=== PATIENT | female | born 1950 | race Caucasian/White ===

== ENCOUNTER 2019-09-02 06:46 | Outpatient (CLI) | payer MEDICARE, MEDICAID, SELFPAY ==
[2019-09-02 07:35] LABS: Basophils Absolute Auto 0.1 K/mm3 (0.0-0.1); Basophils Percent Auto 1.6 % (0.2-1.2); Eosinophils Absolute Auto 0.3 K/mm3 (0-0.3); Eosinophils Percent Auto 3.7 % (0-4.4); Hemoglobin 14.3 g/dL (12.0-15.0); Immature Granulocyte Absolute 0.09 K/mm3 (0.00-0.031); Immature Granulocyte Percent A 1.1 % (0-0.5); Lymphocytes Absolute Auto 2.47 K/mm3 (0.9-3.2); Lymphocytes Percent Auto 30.7 % (18.3-44.2); Mean Corpuscular HGB Conc 31.8 g/dl (32-36); Mean Corpuscular Volume 91.3 fl (80-100); Mean Platelet Volume 10.6 fl (7.4-10.4); Monocytes Absolute Auto 0.9 K/mm3 (0.1-0.6); Monocytes Percent Auto 10.7 % (2.6-8.5); Neutrophils Absolute Auto 4.2 K/mm3 (1.3-6.7); Neutrophils Percent Auto 52.2 % (45.5-73.1); Platelet Count Result 284 k/mm3 (150-375); Red Blood Count 4.93 M/mm3 (4.2-5.4); Red Cell Distribution Width 14.4 % (11.5-14.5); White Blood Count 8.1 K/mm3 (4.5-10.0)
[2019-09-02 07:51] LABS: Alanine Aminotransferase 18 U/L (4-35); Albumin Level 3.9 g/dL (3.5-5.1); Alkaline Phosphatase 65 U/L (38-126); Aspartate Amino Transferase 21 U/L (14-36); Bilirubin,Total 0.4 mg/dL (0.2-1.3); Blood Urea Nitrogen 18 mg/dL (7-17); Calcium 9.4 mg/dL (8.4-10.2); Carbon Dioxide 25 mmol/L (22-30); Chloride 104 mmol/L (98-107); Cholesterol 134 mg/dL (0-200); Estimated Glomerular Filt Rate > 60; Glucose 112 mg/dL (65-105); HDL Direct 39 mg/dL; Potassium 4.5 mmol/L (3.4-5.0); Sodium 136 mmol/L (137-145); Triglycerides 204 mg/dL (<150)
[2019-09-02 08:06] LABS: LDL Cholesterol Direct 66 mg/dL
[2019-09-02 08:08] LABS: Hemoglobin A1C 6.3 % (<5.7)
[2019-09-02 11:26] LABS: Creatinine Urine 66.5 mg/dL
[2019-09-02 11:32] LABS: MALB Creatinine Ratio 29.6 mg/g (0-30); Microalbumin Urine Random 19.7 mg/L (0-16.7)
== END 2019-09-02 06:47 | disposition home or self-care (01) ==
PROVIDERS: PCP Internal Medicine; Visit Provider Internal Medicine
DX: E11.9 Type 2 diabetes mellitus without complications (principal); E78.5 Hyperlipidemia, unspecified; I10 Essential (primary) hypertension
CPT/HCPCS: 36415; 80053; 80061; 82043; 83036; 84443; 85025

== ENCOUNTER 2020-02-17 09:38 | Outpatient (CLI) | payer MEDICARE, MEDICAID, SELFPAY ==
[2020-02-17 10:32] LABS: Basophils Absolute Auto 0.1 K/mm3 (0.0-0.1); Basophils Percent Auto 1.5 % (0.2-1.2); Eosinophils Absolute Auto 0.2 K/mm3 (0-0.3); Eosinophils Percent Auto 2.6 % (0-4.4); Hematocrit 46.1 % (37.0-47.0); Hemoglobin 15.3 g/dL (12.0-15.0); Immature Granulocyte Absolute 0.05 K/mm3 (0.00-0.031); Immature Granulocyte Percent A 0.6 % (0-0.5); Lymphocytes Absolute Auto 2.03 K/mm3 (0.9-3.2); Lymphocytes Percent Auto 25.4 % (18.3-44.2); Mean Corpuscular HGB Conc 33.2 g/dl (32-36); Mean Corpuscular Hemoglobin 29.9 pg (26-34); Mean Corpuscular Volume 90.2 fl (80-100); Mean Platelet Volume 10.2 fl (7.4-10.4); Monocytes Absolute Auto 0.8 K/mm3 (0.1-0.6); Monocytes Percent Auto 10.2 % (2.6-8.5); Neutrophils Absolute Auto 4.8 K/mm3 (1.3-6.7); Neutrophils Percent Auto 59.7 % (45.5-73.1); Platelet Count Result 337 k/mm3 (150-375); Red Blood Count 5.11 M/mm3 (4.2-5.4)
[2020-02-17 10:45] LABS: Alanine Aminotransferase 25 U/L (4-35); Albumin Level 3.9 g/dL (3.5-5.1); Alkaline Phosphatase 72 U/L (38-126); Anion Gap 5 mmol/L (8-16); Aspartate Amino Transferase 26 U/L (14-36); Bilirubin,Total 0.6 mg/dL (0.2-1.3); Blood Urea Nitrogen 25 mg/dL (7-17); Calcium 9.7 mg/dL (8.4-10.2); Carbon Dioxide 30 mmol/L (22-30); Chloride 103 mmol/L (98-107); Cholesterol 168 mg/dL (0-200); Estimated Glomerular Filt Rate > 60; Glucose 140 mg/dL (65-105); HDL Direct 39 mg/dL; Potassium 4.2 mmol/L (3.4-5.0); Sodium 138 mmol/L (137-145); Triglycerides 182 mg/dL (<150)
[2020-02-17 10:56] LABS: LDL Cholesterol Direct 95 mg/dL
[2020-02-17 11:04] LABS: Creatinine Urine 123.9 mg/dL
[2020-02-17 11:09] LABS: MALB Creatinine Ratio 8.4 mg/g (0-30); Microalbumin Urine Random 10.4 mg/L (0-16.7)
[2020-02-17 11:20] LABS: Hemoglobin A1C 5.8 % (<5.7)
== END 2020-02-17 09:39 | disposition home or self-care (01) ==
PROVIDERS: PCP Internal Medicine; Visit Provider Internal Medicine
DX: E78.5 Hyperlipidemia, unspecified (principal); E11.9 Type 2 diabetes mellitus without complications; I10 Essential (primary) hypertension
CPT/HCPCS: 36415; 80053; 80061; 82043; 83036; 85025

== ENCOUNTER 2020-03-09 15:23 | Outpatient (CLI) | payer MEDICARE, MEDICAID, SELFPAY ==
--- NOTE | ~2020-03-09 | CT_ITS ---
EXAMINATION: CT lung screening DATE: 03/09/2020 16:40 INDICATION: History of tobacco dependence TECHNIQUE: Computed tomography (CT) of the chest was performed without intravenous contrast. The dose -length product was 255.87 mGy-cm. Automated exposure control and iterative reconstruction technique were employed. COMPARISON: CT dated 07/23/2018 FINDINGS: There is atherosclerosis. There is coronary artery calcifications. No significant pleural o r pericardial effusion. No evidence for aortic aneurysm. No thoracic lymphadenopathy. Stable 3 mm rig ht middle lobe nodule, image 61. There is a 3 mm right upper lobe nodule, image 34. There is a 3 mm r ight upper lobe nodule, image 27. There is a subsolid 3 mm nodule, image 26. There is a 2 mm left upp er lobe nodule, image 40. No endobronchial lesions. Mild thoracic spondylosis. No osteolytic or osteo blastic lesions. IMPRESSION: 1. Lung-RADS category 2: Benign appearance or behavior. Continue annual screening with noncontrast lo w-dose chest CT in 12 months. Reviewed, dictated and finalized at location A. [employer] IMPRESSION: 1. Lung-RADS category 2: Benign appearance or behavior. Continue annual screeni ng with noncontrast low-dose chest CT in 12 months.
== END 2020-03-09 15:24 | disposition home or self-care (01) ==
PROVIDERS: PCP Internal Medicine; Visit Provider Internal Medicine
DX: Z12.2 Encounter for screening for malignant neoplasm of respiratory organs (principal); Z87.891 Personal history of nicotine dependence
CPT/HCPCS: G0297

== ENCOUNTER 2020-04-02 07:07 | Outpatient (CLI) | payer MEDICARE, MEDICAID, SELFPAY ==
--- NOTE | ~2020-04-02 | MM_ITS ---
EXAMINATION: MM screening tj BI w romina HISTORY: Screening TECHNIQUE: Craniocaudal and mediolateral oblique 3-D tomosynthesis images were obtained and synthetic 2-D images were generated. CAD analysis was submitted and interpreted. COMPARISON: Comparison to multiple prior studies sequentially, with oldest reviewed study dated 05/27. BREAST PARENCHYMAL COMPOSITION: The breasts are almost entirely fatty. FINDINGS: There is no evidence of suspicious mass, calcification, or architectural distortion to sugg est malignancy in either breast. There has been no suspicious interval change. IMPRESSION: 1. No mammographic evidence of malignancy. 2. Recommend routine screening mammography in one year. BI-RADS Category 1: Negative Reviewed, dictated and finalized at location A. [employer]
== END 2020-04-02 07:08 | disposition home or self-care (01) ==
LOC: ANHIMG 07:20
PROVIDERS: PCP Internal Medicine; Visit Provider Internal Medicine
DX: Z12.31 Encounter for screening mammogram for malignant neoplasm of breast (principal)
CPT/HCPCS: 77063; 77067

== ENCOUNTER 2020-08-24 07:08 | Outpatient (CLI) | payer MEDICARE, MEDICAID, SELFPAY ==
[2020-08-24 07:50] LABS: Basophils Absolute Auto 0.1 K/mm3 (0.0-0.1); Basophils Percent Auto 1.3 % (0.2-1.2); Eosinophils Absolute Auto 0.2 K/mm3 (0-0.3); Eosinophils Percent Auto 2.9 % (0-4.4); Hematocrit 46.1 % (37.0-47.0); Hemoglobin 14.8 g/dL (12.0-15.0); Immature Granulocyte Absolute 0.04 K/mm3 (0.00-0.031); Immature Granulocyte Percent A 0.5 % (0-0.5); Lymphocytes Absolute Auto 2.76 K/mm3 (0.9-3.2); Lymphocytes Percent Auto 33.6 % (18.3-44.2); Mean Corpuscular HGB Conc 32.1 g/dl (32-36); Mean Corpuscular Hemoglobin 29.4 pg (26-34); Mean Corpuscular Volume 91.5 fl (80-100); Mean Platelet Volume 11.1 fl (7.4-10.4); Monocytes Absolute Auto 0.8 K/mm3 (0.1-0.6); Monocytes Percent Auto 10.1 % (2.6-8.5); Neutrophils Absolute Auto 4.2 K/mm3 (1.3-6.7); Neutrophils Percent Auto 51.6 % (45.5-73.1); Platelet Count Result 286 k/mm3 (150-375); Red Blood Count 5.04 M/mm3 (4.2-5.4); Red Cell Distribution Width 14.6 % (11.5-14.5); White Blood Count 8.2 K/mm3 (4.5-10.0)
[2020-08-24 08:07] LABS: Hemoglobin A1C 5.9 % (<5.7)
[2020-08-24 08:09] LABS: Alanine Aminotransferase 25 U/L (4-35); Albumin Level 3.7 g/dL (3.5-5.1); Alkaline Phosphatase 62 U/L (38-126); Anion Gap 7 mmol/L (8-16); Aspartate Amino Transferase 29 U/L (14-36); Bilirubin,Total 0.4 mg/dL (0.2-1.3); Blood Urea Nitrogen 24 mg/dL (7-17); Calcium 9.1 mg/dL (8.4-10.2); Carbon Dioxide 26 mmol/L (22-30); Chloride 104 mmol/L (98-107); Cholesterol 120 mg/dL (0-200); Estimated Glomerular Filt Rate 55; Glucose 104 mg/dL (65-105); HDL Direct 35 mg/dL; Potassium 4.9 mmol/L (3.4-5.0); Sodium 137 mmol/L (137-145); Triglycerides 195 mg/dL (<150)
[2020-08-24 08:20] LABS: LDL Cholesterol Direct 54 mg/dL
[2020-08-24 09:54] LABS: Vitamin D 25 Hydroxy 65.3 ng/mL
[2020-08-24 13:20] LABS: Creatinine Urine 189.6 mg/dL
[2020-08-24 13:32] LABS: MALB Creatinine Ratio < 3.2 mg/g (0-30); Microalbumin Urine Random < 6.0 mg/L (0-16.7)
== END 2020-08-24 07:09 | disposition home or self-care (01) ==
LOC: ANHLAB 07:12
PROVIDERS: PCP Internal Medicine; Visit Provider Internal Medicine
DX: Z78.0 Asymptomatic menopausal state (principal); I25.10 Atherosclerotic heart disease of native coronary artery without angina pectoris; J44.9 Chronic obstructive pulmonary disease, unspecified; E11.9 Type 2 diabetes mellitus without complications; I10 Essential (primary) hypertension; E55.9 Vitamin D deficiency, unspecified; E78.2 Mixed hyperlipidemia
CPT/HCPCS: 36415; 80053; 80061; 82043; 82306; 83036; 84443; 85025

== ENCOUNTER 2021-02-26 07:01 | Outpatient (CLI) | payer MEDICARE, SELFPAY ==
[2021-02-26 08:43] LABS: Alanine Aminotransferase 20 U/L (4-35); Albumin Level 4.2 g/dL (3.5-5.1); Alkaline Phosphatase 62 U/L (38-126); Anion Gap 8 mmol/L (8-16); Aspartate Amino Transferase 29 U/L (14-36); Bilirubin,Total 0.7 mg/dL (0.2-1.3); Blood Urea Nitrogen 25 mg/dL (7-17); Calcium 9.3 mg/dL (8.4-10.2); Carbon Dioxide 24 mmol/L (22-30); Chloride 100 mmol/L (98-107); Cholesterol 112 mg/dL (0-200); Estimated Glomerular Filt Rate > 60; Glucose 107 mg/dL (65-110); HDL Direct 34 mg/dL; Potassium 4.5 mmol/L (3.4-5.0); Sodium 132 mmol/L (137-145); Triglycerides 180 mg/dL (<150)
[2021-02-26 08:54] LABS: LDL Cholesterol Direct 48 mg/dL
[2021-02-26 09:10] LABS: Creatinine Urine 142.7 mg/dL
[2021-02-26 09:14] LABS: MALB Creatinine Ratio 4.7 mg/g (0-30); Microalbumin Urine Random 6.7 mg/L (0-16.7)
[2021-03-02 11:39] LABS: Vitamin D 1,25 (OH)2 Total 15 pg/mL (18-72); Vitamin D2 1,25 (OH)2 <8 pg/mL; Vitamin D3 1,25 (OH)2 15 pg/mL
== END 2021-02-26 07:02 | disposition home or self-care (01) ==
LOC: ANHLAB 07:07
PROVIDERS: PCP Internal Medicine; Visit Provider Internal Medicine
DX: E78.5 Hyperlipidemia, unspecified (principal); E11.9 Type 2 diabetes mellitus without complications; E55.9 Vitamin D deficiency, unspecified; I10 Essential (primary) hypertension; E87.1 Hypo-osmolality and hyponatremia
CPT/HCPCS: 36415; 80053; 80061; 82043; 82652; 84443

== ENCOUNTER 2021-02-27 07:30 | Outpatient (CLI) | payer OTHER, SELFPAY ==
[2021-02-27 09:40] LABS: Hemoglobin A1C 5.8 % (<5.7)
== END 2021-02-27 07:31 | disposition home or self-care (01) ==
LOC: ANHLAB 07:35
PROVIDERS: PCP Internal Medicine; Visit Provider Internal Medicine
DX: E78.5 Hyperlipidemia, unspecified (principal); I10 Essential (primary) hypertension; E11.9 Type 2 diabetes mellitus without complications
CPT/HCPCS: 36415; 83036

== ENCOUNTER 2021-03-15 10:43 | Outpatient (CLI) | payer OTHER, SELFPAY ==
--- NOTE | ~2021-03-15 | CT_ITS ---
EXAMINATION:CT lung screening DATE: 03/15/2021 10:59 INDICATION: Personal history of nicotine dependence. Current smoker with 50 pack year history. TECHNIQUE: Computed tomography (CT) of the chest was performed without intravenous contrast. Automate d exposure control and iterative reconstruction technique were employed. The dose-length product (DLP ) was 244.16 mGy-cm. COMPARISON: Chest CT 03/09/2020 FINDINGS: Again seen is a 4 mm nodule in right middle lobe. There are a few scattered 2-3 mm nodules. No pleural effusion. The heart size is normal. There are coronary artery calcifications. There are c alcifications of aortic valve. No pericardial effusion. There is mild thoracic spondylosis. IMPRESSION: 1. Lung-RADS category 2: Benign appearance or behavior. Continue annual screening with noncontrast lo w-dose chest CT in 12 months. Reviewed, dictated and finalized at location A. [employer] IMPRESSION: 1. Lung-RADS category 2: Benign appearance or behavior. Continue annual screeni ng with noncontrast low-dose chest CT in 12 months.
== END 2021-03-15 10:44 | disposition home or self-care (01) ==
LOC: ANHIMG 10:45
PROVIDERS: PCP Internal Medicine; Visit Provider Internal Medicine
DX: Z12.2 Encounter for screening for malignant neoplasm of respiratory organs (principal); Z87.891 Personal history of nicotine dependence
CPT/HCPCS: 71271

== ENCOUNTER 2021-09-22 14:43 | Outpatient (CLI) | payer OTHER, SELFPAY ==
[2021-09-22 15:07] LABS: Basophils Absolute Auto 0.1 K/mm3 (0.0-0.1); Basophils Percent Auto 1.2 % (0.2-1.2); Eosinophils Absolute Auto 0.1 K/mm3 (0-0.3); Eosinophils Percent Auto 0.8 % (0-4.4); Hematocrit 44.2 % (37.0-47.0); Hemoglobin 14.5 g/dL (12.0-15.0); Immature Granulocyte Absolute 0.04 K/mm3 (0.00-0.031); Immature Granulocyte Percent A 0.4 % (0-0.5); Mean Corpuscular HGB Conc 32.8 g/dl (32-36); Mean Corpuscular Hemoglobin 29.8 pg (26-34); Mean Corpuscular Volume 90.9 fl (80-100); Mean Platelet Volume 10.4 fl (7.4-10.4); Monocytes Absolute Auto 0.7 K/mm3 (0.1-0.6); Monocytes Percent Auto 7.6 % (2.6-8.5); Neutrophils Absolute Auto 6.6 K/mm3 (1.3-6.7); Platelet Count Result 323 k/mm3 (150-375); Red Blood Count 4.86 M/mm3 (4.2-5.4); Red Cell Distribution Width 14.3 % (11.5-14.5); White Blood Count 9.5 K/mm3 (4.5-10.0)
[2021-09-22 15:17] LABS: Alanine Aminotransferase 27 U/L (6-35); Albumin Level 4.3 g/dL (3.5-5.1); Alkaline Phosphatase 64 U/L (38-126); Anion Gap 6 mmol/L (8-16); Aspartate Amino Transferase 35 U/L (14-36); Bilirubin,Total 0.8 mg/dL (0.2-1.3); Blood Urea Nitrogen 29 mg/dL (7-17); Calcium 9.6 mg/dL (8.4-10.2); Carbon Dioxide 28 mmol/L (22-30); Chloride 102 mmol/L (98-107); Cholesterol 121 mg/dL (0-200); Creatine Kinase 76 U/L (30-135); Estimated Glomerular Filt Rate 49; Glucose 129 mg/dL (65-110); HDL Direct 32 mg/dL; Potassium 4.8 mmol/L (3.4-5.0); Sodium 136 mmol/L (137-145); Triglycerides 161 mg/dL (<150)
[2021-09-22 15:29] LABS: LDL Cholesterol Direct 50 mg/dL
[2021-09-22 16:40] LABS: Creatinine Urine 164.5 mg/dL
[2021-09-22 16:45] LABS: Microalbumin Urine Random 29.6 mg/L (0-16.7)
[2021-09-22 16:46] LABS: Thyroid Stimulating Hormone Reflex 0.984 uIU/mL (0.465-4.68)
[2021-09-22 17:02] LABS: Hepatitis C Virus Antibody Negative (Negative)
== END 2021-09-22 14:44 | disposition home or self-care (01) ==
PROVIDERS: PCP Student in an Organized Health Care Education/Training Program; Visit Provider Student in an Organized Health Care Education/Training Program
DX: Z00.00 Encounter for general adult medical examination without abnormal findings (principal); E11.9 Type 2 diabetes mellitus without complications; I25.10 Atherosclerotic heart disease of native coronary artery without angina pectoris; I10 Essential (primary) hypertension; E78.2 Mixed hyperlipidemia
CPT/HCPCS: 36415; 80053; 80061; 82043; 82550; 84443; 85025; 86803

== ENCOUNTER 2021-11-05 08:23 | Outpatient (CLI) | payer OTHER, SELFPAY ==
--- NOTE | ~2021-11-05 | MM_ITS ---
EXAMINATION: MM screening tj BI w romina HISTORY: Screening mammogram TECHNIQUE: Craniocaudal and mediolateral oblique 3-D tomosynthesis images were obtained and synthetic 2-D images were generated. CAD analysis was submitted and interpreted. COMPARISON: 04/02/2020, 05/21/2015 bilateral screening mammogram examinations BREAST PARENCHYMAL COMPOSITION: The breasts are almost entirely fatty. FINDINGS: There is no evidence of suspicious mass, calcification, or architectural distortion to sugg est malignancy in either breast. There has been no suspicious interval change. IMPRESSION: 1. No mammographic evidence of malignancy. 2. Recommend routine screening mammography in one year. BI-RADS Category 1: Negative Reviewed, dictated and finalized at location A.
== END 2021-11-05 08:24 | disposition home or self-care (01) ==
LOC: ANHIMG 08:24
PROVIDERS: PCP Student in an Organized Health Care Education/Training Program; Visit Provider Student in an Organized Health Care Education/Training Program
DX: Z12.31 Encounter for screening mammogram for malignant neoplasm of breast (principal)
CPT/HCPCS: 77063; 77067

== ENCOUNTER 2022-04-09 10:35 | Emergency (ER) | payer MEDICARE, SELFPAY ==
[2022-04-09] VITALS (32 sets, daily range): BP systolic 100–173; BP diastolic 60–98; PULSE 59–85; RESP 12–25; TEMP 36.4; O2SAT 95–100
--- NOTE | ~2022-04-09 | XR_ITS ---
EXAMINATION: XR chest 2V DATE: 04/09/2022 13:53 INDICATION: Shortness of breath. Nausea. TECHNIQUE: Frontal and lateral views of the chest were obtained. COMPARISON: Chest single view 04/13/2019, chest CT 03/15/2021 FINDINGS: There are airspace opacities overlying the lower lobes on the lateral view. No pleural effu ingrid or pneumothorax. The heart size is normal. There is a prominent right paracardial fat pad. IMPRESSION: 1. Airspace opacities overlying the lower lobes on the lateral view, consistent with atelectasis vers us pneumonia, which may be on either side or both sides. Reviewed, dictated and finalized at location A. [employer] IMPRESSION: 1. Airspace opacities overlying the lower lobes on the lateral view, consistent with atelectasis versus pneumonia, which may be on either side or both sides.
--- NOTE | 2022-04-09 11:54 | PC.NURSE ---
Patient stated that she has no chest pain now, but stated that she does have some chest pain from time to time.
[2022-04-09 12:10] LABS: Basophils Percent Auto 0.4 % (0.2-1.2); Eosinophils Percent Auto 0.1 % (0-4.4); Hematocrit 48.1 % (37.0-47.0); Immature Granulocyte Absolute 0.07 K/mm3 (0.00-0.031); Immature Granulocyte Percent A 0.6 % (0-0.5); Lymphocytes Absolute Auto 2.94 K/mm3 (0.9-3.2); Lymphocytes Percent Auto 25.8 % (18.3-44.2); Mean Corpuscular HGB Conc 35.3 g/dl (32-36); Mean Corpuscular Hemoglobin 30.8 pg (26-34); Mean Corpuscular Volume 87.1 fl (80-100); Mean Platelet Volume 10.9 fl (7.4-10.4); Monocytes Absolute Auto 1.3 K/mm3 (0.1-0.6); Monocytes Percent Auto 11.2 % (2.6-8.5); Neutrophils Absolute Auto 7.1 K/mm3 (1.3-6.7); Neutrophils Percent Auto 61.9 % (45.5-73.1); Platelet Count Result 328 k/mm3 (150-375); Red Blood Count 5.52 M/mm3 (4.2-5.4); Red Cell Distribution Width 13.4 % (11.5-14.5); White Blood Count 11.4 K/mm3 (4.5-10.0)
[2022-04-09] MEDS: IPRATROPIUM BR 0.02% INH SOLN 0.5 MG/2.5 ML VIAL INHALATION (12:14)
[2022-04-09] MEDS: ALBUTEROL SULFATE NEB 2.5 MG/3 ML INH 5 MG INHALATION (12:14)
[2022-04-09] MEDS: ONDANSETRON INJ 4 MG/2 ML VIAL IV PUSH (12:19)
[2022-04-09 12:24] LABS: Appearance Urine Clear (Clear); Bilirubin Urine 1+ (Negative); Blood Urine 1+ (Negative); Color Urine Yellow (Yellow); Glucose Urine UA Negative (Negative); Ketones Urine 1+ mg/dL (Negative); Leukocyte Esterase Ur Negative LEU/UL (Negative); Nitrate Urine Negative (Negative); Protein Urine Negative (Negative); Specific Grav Ur 1.025 (1.001-1.035); Urobilinogen Urine 0.2 mg/dL (<2.0); pH Urine 5.5 (5.0-9.0)
[2022-04-09 12:27] LABS: Alanine Aminotransferase 35 U/L (6-35); Albumin Level 4.4 g/dL (3.5-5.1); Alkaline Phosphatase 79 U/L (38-126); Anion Gap 9 mmol/L (8-16); Aspartate Amino Transferase 44 U/L (14-36); Bilirubin,Total 1.8 mg/dL (0.2-1.3); Blood Urea Nitrogen 32 mg/dL (7-17); Calcium 9.2 mg/dL (8.4-10.2); Carbon Dioxide 28 mmol/L (22-30); Chloride 91 mmol/L (98-107); Estimated Glomerular Filt Rate > 60; Glucose 127 mg/dL (65-110); Lipase 198 U/L (23-300); Potassium 3.8 mmol/L (3.4-5.0); Sodium 128 mmol/L (137-145)
[2022-04-09 12:33] LABS: Mucus Urine Rare /lpf; Squamous Epithelial Cell Urine Many /hpf (Few); WBC Urine 0-3 /hpf
[2022-04-09 12:36] LABS: Add Urine Microscopic? YES
[2022-04-09 12:36] LABS: Alveolar/Arterial O2 Gradient 53.3 mmHg; Base Excess ABG 5.3 mEq/l (+/-2.0); Carboxyhemoglobin 2.6 % THb (0-2.0); Fractional Inspired Oxygen 52 %; HCO3 ABG 26.7 mEq/l (22.0-26.0); Methemoglobin ABG 0.6 %THb (0-1.5); Oxygen Content ABG 24.4 %vol (16.0-22.0); Oxygen Saturation ABG 99.7 % (95.0-100.0); Oxyhemoglobin 96.2 % THb (90.0-100.0); PCO2 ABG 30.8 mmHg (35.0-45.0); PO2 FiO2 Ratio Arterial Blood 5.44 %; Reduced Hemoglobin 0.6 %THb (0-5.0); Total Hemoglobin 17.6 g/dL (12.0-18.0)
[2022-04-09 12:37] LABS: Device OTHER DEVICE; Site Drawn RIGHT BRACHIAL; pH ABG 7.556 (7.350-7.450)
[2022-04-09 12:47] LABS: Influenza A QL RT-PCR Negative (Negative); Influenza B QL RT-PCR Negative (Negative); SARS-CoV-2 RNA PCR Negative
--- NOTE | 2022-04-09 14:33 | ED.WEAKNESS ---
HPI - Weakness General Chief complaint: Weakness Stated complaint: weakness Time Seen by Provider: 04/09/22 11:45 History of Present Illness HPI Narrative: Patient is a 71-year-old female who presents ER with weakness. Onset 3 days ago. Not eating and drinking. No fevers or chills or sweats. Has persistent nausea. No diarrhea. No pain with eating. Denies sick contacts. Patient has some mild shortness of breath. Has history of COPD. No productive cough. Related Data Home Medications Medication Instructions Recorded Confirmed aspirin 81 mg tablet,delayed 81 mg PO DAILY 04/09/19 03/02/21 release (Adult Low Dose Aspirin) nitroglycerin 0.4 mg sublingual 0.4 mg sublingual PER PKG DIR PRN 04/09/19 03/02/21 tablet Angina Allergies Allergy/AdvReac Type Severity Reaction Status Date / Time acetaminophen Allergy Unknown NAUSEA, Verified 03/02/21 10:23 VOMITING Sulfa (Sulfonamide Allergy Unknown Unknown Verified 03/02/21 10:23 Antibiotics) Review of Systems Review of Systems: All systems reviewed & are unremarkable except as noted in HPI and below Constitutional: Constitutional: Denies chills, Reports fatigue, Denies fever(s) and Reports weakness ENT: Denies nasal congestion and Denies sore throat Cardiovascular: Cardiovascular: Denies chest pain and Denies rapid heart rate Respiratory: Respiratory: Denies cough, Reports dyspnea and Reports wheezing Gastrointestinal: Gastrointestinal: Denies abdominal pain, Denies nausea and Denies vomiting PMF Past Medical History Medical History (Updated 04/09/22 @ 18:24 by Jason Santiago MD) Bone spur Chronic back pain COPD (chronic obstructive pulmonary disease) Diabetes HTN (hypertension) Hyperlipidemia Post-menopausal Surgical History Surgical History History of tubal ligation Family History Family History Sibling Family history of heart disease in male family member before age 55 Mother Pancreatic cancer Diabetes mellitus Sibling Heart disease Diabetes mellitus Cerebrovascular accident Daughter MVA (motor vehicle accident) Father Cerebrovascular accident Other Hypertension Social History Social History Social History: The patient lives with her brother who she is a caregiver for. She had 2 children and her daughter in a motor vehicle accident. Her son recently was in a motor vehicle accident and is suffering some injuries from that. She still continues to smoke for several years. No alcohol use. 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 She does not want any CPR but will allow was put on the ventilator in the event that she cannot breathe. Smoking packs per day: 0.5 Smoking cigarettes per day: 10.0 Years smoked: 50 Smoking pack-years: 25.00 Smoking status: Current every day smoker Tobacco type: cigarettes Second hand tobacco smoke exposure: Yes Alcohol intake: never Substance use: never Substance use type: does not use Living arrangements: with family Occupation/Education: retired Gender identity (if verbalized by the patient): Female Spiritual care concerns: No Agree to blood products: No Exam Narrative: GENERAL: Fatigue is-appearing, well-nourished, and in no acute distress. HEAD: Normocephalic, atraumatic. EYES: PERRLA and EOMI. ENT: Mucous membranes moist. CHEST: Faint end expiratory wheezing posteriorly and anteriorly.. No respiratory distress. HEART: Regular rate and rhythm. Normal peripheral pulses. ABDOMEN: Soft, nontender, nondistended. EXTREMITIES: Normal range of motion. No edema. SKIN: Warm, dry, no rash. NEURO: Alert and oriented x3. PSYCH: Normal mood and affect. Course Course Emergency Course: Patient resting comfortably
[2022-04-09 14:51] LABS: Alveolar/Arterial O2 Gradient 25.7 mmHg; Base Excess ABG 5.1 mEq/l (+/-2.0); Carboxyhemoglobin 1.9 % THb (0-2.0); Fractional Inspired Oxygen 21 %; Methemoglobin ABG 0.5 %THb (0-1.5); Oxygen Content ABG 23.8 %vol (16.0-22.0); Oxygen Saturation ABG 98.2 % (95.0-100.0); Oxyhemoglobin 95.2 % THb (90.0-100.0); PO2 ABG 92.9 mmHg (80.0-100.0); PO2 FiO2 Ratio Arterial Blood 4.42 %; Reduced Hemoglobin 2.4 %THb (0-5.0); Total Hemoglobin 17.8 g/dL (12.0-18.0)
[2022-04-09 14:52] LABS: Device ROOM AIR; Modified Allen's Test Pass; Site Drawn LEFT RADIAL
[2022-04-09] MEDS: SODIUM CHLORIDE 0.9% IV 1,000 ML 999 ML IV CONT (15:12)
[2022-04-09 17:30] LABS: Anion Gap 9 mmol/L (8-16); Blood Urea Nitrogen 27 mg/dL (7-17); Calcium 8.5 mg/dL (8.4-10.2); Carbon Dioxide 27 mmol/L (22-30); Chloride 97 mmol/L (98-107); Estimated Glomerular Filt Rate > 60; Glucose 118 mg/dL (65-110); Potassium 3.5 mmol/L (3.4-5.0); Sodium 133 mmol/L (137-145)
[2022-04-09 18:06] LABS: Alveolar/Arterial O2 Gradient 38.2 mmHg; Base Excess ABG 1.1 mEq/l (+/-2.0); Carboxyhemoglobin 1.9 % THb (0-2.0); Fractional Inspired Oxygen 21 %; HCO3 ABG 23.6 mEq/l (22.0-26.0); Methemoglobin ABG 0.5 %THb (0-1.5); Oxygen Content ABG 20.6 %vol (16.0-22.0); Oxygen Saturation ABG 95.8 % (95.0-100.0); Oxyhemoglobin 92.3 % THb (90.0-100.0); PCO2 ABG 32.1 mmHg (35.0-45.0); PO2 ABG 73.1 mmHg (80.0-100.0); PO2 FiO2 Ratio Arterial Blood 3.48 %; Reduced Hemoglobin 5.3 %THb (0-5.0); Total Hemoglobin 15.9 g/dL (12.0-18.0); pH ABG 7.485 (7.350-7.450)
[2022-04-09 18:08] LABS: Modified Allen's Test Pass; Site Drawn RIGHT RADIAL
== END 2022-04-09 20:16 | disposition home or self-care (01) ==
PROVIDERS: Physician Assistant; Emergency Provider Emergency Medicine; PCP Student in an Organized Health Care Education/Training Program
DX: J18.9 Pneumonia, unspecified organism (principal); R11.0 Nausea; E87.3 Alkalosis; E86.0 Dehydration; E11.9 Type 2 diabetes mellitus without complications; I10 Essential (primary) hypertension; E78.5 Hyperlipidemia, unspecified; F17.210 Nicotine dependence, cigarettes, uncomplicated
CPT/HCPCS: 36415; 36600; 71046; 80048; 80053; 81001; 82375; 82805; 83050; 83690; 85025; 87636; 94640; 96361; 96374; 99284; J2405; J7030

== ENCOUNTER 2022-12-09 10:31 | Emergency (ER) | payer MEDICARE, MEDICAID, SELFPAY ==
--- NOTE | ~2022-12-09 | CT_ITS ---
EXAMINATION: CT cervical spine wo con DATE: 12/09/2022 12:23 INDICATION: Neck pain TECHNIQUE: Computed tomography (CT) of the cervical spine was performed without intravenous contrast. The dose-length product (DLP) was 328.29 mGy-cm. Automated exposure control and iterative reconstruc tion technique were employed. COMPARISON: None FINDINGS: There is 1 mm of anterolisthesis of C5 on C6. No fracture is identified. There is mild loss of intervertebral disc space height at C6-7. The odontoid process is intact. The prevertebral soft t issues are normal. There is multilevel mild facet and uncovertebral joint osteoarthritis. Severe face t joint osteoarthritis is noted on the right at C5-6. IMPRESSION: 1. Mild cervical spondylosis without acute findings. Reviewed, dictated and finalized at location B.
[2022-12-09 10:38] VITALS: BP 113/65; PULSE 79; RESP 14; TEMP 36.6; O2SAT 98
[2022-12-09 11:04] VITALS: BP 109/76; PULSE 71; RESP 26; TEMP 36.7; O2SAT 94
[2022-12-09 11:05] VITALS: O2SAT 95
--- NOTE | 2022-12-09 11:59 | ECG_ITS ---
Measurements Intervals [place] Rate: 62 P: 14 AR: 142 QRS: 6 QRSD: 82 T: 5 QT: 401 QTc: 407 Interpretive Statements SINUS RHYTHM LOW QRS VOLTAGE IN PRECORDIAL LEADS BASELINE WANDER- I, II, III, AVF, V5-V6 BORDERLINE ECG COMPARED TO ECG 04/09/2019 13:10:38 NO SIGNIFICANT CHANGES Electronically Signed On 12-09-2022 12:15:56 CDT by Yovany Jacinto D.O.
[2022-12-09] MEDS: CYCLOBENZAPRINE HCL 10 MG TABLET PO (12:13)
--- NOTE | 2022-12-09 12:15 | ED.GENADULT ---
HPI - General Adult General Chief complaint: Extremity Problem,Nontraumatic Stated complaint: left neck/shoulder/arm pain x 2 days Time Seen by Provider: 12/09/22 11:03 History of Present Illness HPI narrative: Dolores Wei is a 72 y/o female with PMHx of DM/ HTN/HLD/ COPD who presents with reports of having aching pain to her mid left arm that started 3 days ago, the following day the pain got worse and moved down to her whole arm. Today she decided to get it checked out. As of now she thinks the pain is actually better and thinks it might of been related to stress, although when she moves it she can kind of feel the pain return and go up to the left side of her neck Denies chest pain/ shortness of breath/ fever/chills/ trauma/falls/known injury,. Related Data Home Medications Medication Instructions Recorded Confirmed aspirin 81 mg tablet,delayed 81 mg PO DAILY 04/09/19 03/02/21 release (Adult Low Dose Aspirin) nitroglycerin 0.4 mg sublingual 0.4 mg sublingual PER PKG DIR PRN 04/09/19 03/02/21 tablet Angina Allergies Allergy/AdvReac Type Severity Reaction Status Date / Time acetaminophen Allergy Unknown NAUSEA, Verified 12/09/22 10:32 VOMITING Sulfa (Sulfonamide Allergy Unknown Unknown Verified 12/09/22 10:32 Antibiotics) Review of Systems Review of Systems: CONSTITUTIONAL: Denies fever, chills, or sweats. EYES: Denies visual changes, redness, or discharge. ENT: Denies rhinorrhea, congestion, sore throat, or otalgia. CARDIOVASCULAR: Denies chest pain, palpitations, or edema. RESPIRATORY: Denies cough or dyspnea. GASTROINTESTINAL: Denies abdominal pain, nausea, vomiting, or diarrhea. GENITOURINARY: Denies dysuria or hematuria. SKIN: Denies rash or itching. MUSCULOSKELETAL: Denies back pain, Complaints of pain to the mid left arm that moved down to her whole arm over the past couple days NEUROLOGIC: Denies headache, numbness, dizziness, or weakness. PSYCHIATRIC: Denies anxiety or depression. [facility] Past Medical History Medical History (Updated 12/09/22 @ 14:19 by Malika Robles APRN) Bone spur Chronic back pain COPD (chronic obstructive pulmonary disease) Diabetes HTN (hypertension) Hyperlipidemia Post-menopausal Surgical History Surgical History History of tubal ligation Family History Family History Sibling Family history of heart disease in male family member before age 55 Mother Pancreatic cancer Diabetes mellitus Sibling Heart disease Diabetes mellitus Cerebrovascular accident Daughter MVA (motor vehicle accident) Father Cerebrovascular accident Other Hypertension Social History Social History Social History: The patient lives with her brother who she is a caregiver for. She had 2 children and her daughter in a motor vehicle accident. Her son recently was in a motor vehicle accident and is suffering some injuries from that. She still continues to smoke for several years. No alcohol use. 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 She does not want any CPR but will allow was put on the ventilator in the event that she cannot breathe. Smoking packs per day: 0.5 Smoking cigarettes per day: 10.0 Years smoked: 50 Smoking pack-years: 25.00 Smoking status: Current every day smoker Tobacco type: cigarettes Second hand tobacco smoke exposure: Yes Alcohol intake: never Substance use: never Substance use type: does not use Living arrangements: with family Occupation/Education: retired Gender identity (if verbalized by the patient): Female Spiritual care concerns: No Agree to blood products: No Exam Narrative: GENERAL: Well-appearing, well-nourished, and in no acute distress. HEAD: Normocephalic, atraumatic. EYES:
--- NOTE | 2022-12-09 12:17 | PC.NURSE ---
pt off the floor to xray @ 1213
[2022-12-09 12:45] VITALS: BP 113/70
[2022-12-09 12:54] LABS: Basophils Absolute Auto 0.1 K/mm3 (0.0-0.1); Basophils Percent Auto 0.6 % (0.2-1.2); Eosinophils Absolute Auto 0.1 K/mm3 (0-0.3); Eosinophils Percent Auto 0.6 % (0-4.4); Hematocrit 43.2 % (37.0-47.0); Hemoglobin 14.4 g/dL (12.0-15.0); Immature Granulocyte Absolute 0.04 K/mm3 (0.00-0.031); Immature Granulocyte Percent A 0.4 % (0-0.5); Lymphocytes Absolute Auto 1.74 K/mm3 (0.9-3.2); Lymphocytes Percent Auto 16.1 % (18.3-44.2); Mean Corpuscular HGB Conc 33.3 g/dl (32-36); Mean Corpuscular Hemoglobin 29.9 pg (26-34); Mean Corpuscular Volume 89.8 fl (80-100); Mean Platelet Volume 10.5 fl (7.4-10.4); Monocytes Absolute Auto 1.3 K/mm3 (0.1-0.6); Neutrophils Absolute Auto 7.6 K/mm3 (1.3-6.7); Neutrophils Percent Auto 70.3 % (45.5-73.1); Platelet Count Result 242 k/mm3 (150-375); Red Blood Count 4.81 M/mm3 (4.2-5.4); Red Cell Distribution Width 14.5 % (11.5-14.5); White Blood Count 10.8 K/mm3 (4.5-10.0)
[2022-12-09 12:59] LABS: Anion Gap 6 mmol/L (8-16); Blood Urea Nitrogen 15 mg/dL (7-17); Calcium 9.1 mg/dL (8.4-10.2); Carbon Dioxide 28 mmol/L (22-30); Chloride 102 mmol/L (98-107); Estimated CRCL calculation 57 ml/min; Estimated Glomerular Filt Rate > 60; Glucose 107 mg/dL (65-110); Potassium 3.7 mmol/L (3.4-5.0); Sodium 136 mmol/L (137-145)
[2022-12-09 13:11] LABS: Troponin I < 0.012 ng/mL (0.000-0.034)
== END 2022-12-09 14:41 | disposition home or self-care (01) ==
PROVIDERS: Emergency Provider Nurse Practitioner Family; PCP Student in an Organized Health Care Education/Training Program
DX: M62.838 Other muscle spasm (principal); J44.9 Chronic obstructive pulmonary disease, unspecified; I10 Essential (primary) hypertension; E11.9 Type 2 diabetes mellitus without complications; E78.5 Hyperlipidemia, unspecified; Z79.82 Long term (current) use of aspirin; Z79.3 Long term (current) use of hormonal contraceptives; Z79.84 Long term (current) use of oral hypoglycemic drugs; M47.812 Spondylosis without myelopathy or radiculopathy, cervical region; R94.31 Abnormal electrocardiogram [ECG] [EKG]
CPT/HCPCS: 36415; 72125; 80048; 84484; 85025; 93005; 99284; A9270